=== PATIENT | female | born 2000 | race Caucasian/White ===

== ENCOUNTER 2022-06-05 20:42 | Emergency (ER) | payer MEDICAID ==
[~2022-06-05] VITALS: Ht 165.1 cm; Wt 71.0 kg
[2022-06-05] MEDS ORDERED: TRIA30CR TP (23:19)
[2022-06-06 00:08] VITALS: BP 124/82
== END 2022-06-06 00:11 | disposition home or self-care (01) ==
LOC: ER 20:42
DX: L30.9 Dermatitis, unspecified (principal); Z88.2 Allergy status to sulfonamides
CPT/HCPCS: 81025; 99283